=== PATIENT | male | born 1985 | race African-American/Black ===

== ENCOUNTER 2017-03-11 18:07 | Emergency (ER) | payer SELFPAY ==
[~2017-03-11] VITALS: Ht 182.9 cm; Wt 72.6 kg
[2017-03-11 18:20] VITALS: BP 125/88
--- NOTE | 2017-03-11 18:37 | PHYS DOC ---
Adult General Chief Complaint Chief Complaint: WRIST PAIN HPI HPI Patient is a 32 year old M who presents with left wrist pain. Patient states he was training his thoroughbred horses and fell off injuring his left wrist. Patient has obvious deformity to his left wrist. Patient sustained no other injuries. Patient reports no loss of consciousness or any head contusion. Patient has no other complaints. Review of Systems Review of Systems GEN: Denies fevers, chills, sweats HEENT: Denies blurred vision, sore throat CV: Denies chest pain RESP: Denies shortness of air, cough GI: Denies n/v/d NEURO: Denies confusion, dizziness MSK: Left wrist pain Current Medications Current Medications Current Medications Medications (Trade) Dose Ordered Sig/Greg Start Time Stop Time Status Last Admin Dose Admin Fentanyl Citrate (Fentanyl 2ml Vial) 100 mcg STK-MED ONCE 03/11/17 20:04 03/11/17 20:05 DC Allergies Allergies Allergies Coded Allergies Type Severity Reaction Last Updated Verified tramadol Allergy Intermediate 03/11/17 Yes Physical Exam Physical Exam GEN.: Confused, intoxicated HEENT: Head is normocephalic, atraumatic NECK: Supple. LUNGS: CTAB. HEART: RRR, S1, S2 present. Peripheral pulses intact ABDOMEN: Soft, nontender. Positive bowel sounds. EXTREMITIES: Without any cyanosis, left wrist obvious deformity to the distal radius, capillary refill the fingers on the left hand less than 2 seconds , +2 radial pulse left wrist, no tenderness palpation to the elbow or shoulder NEUROLOGIC: Cranial nerves II through XII are grossly intact to light focal neurological deficits PSYCHIATRIC: Hallucinating SKIN: No ulcerations Current Patient Data Vital Signs Vital Signs Date Time Temp Pulse Resp B/P (MAP) Pulse Ox O2 Delivery O2 Flow Rate FiO2 03/11/17 18:20 98.8 102 18 125/88 (100) 99 Room Air 98.8 EKG EKG [] Radiology/Procedures Radiology/Procedures X-ray of the left wrist shows a comminuted interarticular distal radius fracture X-ray of the left forearm shows the distal radius fracture[] Course & Med Decision Making Course & Med Decision Making Pertinent Labs and Imaging studies reviewed. (See chart for details) ED course: Patient was seen and examined emergency room x-rays of the left wrist and forearm were ordered 1923: Discussed CC/HP/PMH with Dr. Contreras's LILIA Randolph and recommends x-ray of the forearm and will contact Dr. Contreras 1950: Dr. Contreras's PA called back and recommends a sugar tong splint and no need to reduce the wrist because they are taken to surgery on and would like to follow up appointment on this Tuesday. 2015: Sugar tong splint applied to the left forearm post-splint reevaluation neurovascular intact MDM: After reviewing the chart, CC/HPI/PMH, physical exam, [radiological results], I do not believe the patient sustained a significant traumatic injury to the left wrist warranting further workup and/or admission at this time. Patient is stable for discharge and will have follow-up with orthopedics on Tuesday and surgery on . Patient is provided all contact and follow-up information with Dr. Contreras. Additional verbal discharge instructions were provided to the patient and that if symptoms get worse or any new symptoms arise that are worrisome to the patient he is to return to the emergency room immediately [] Dragon Disclaimer Dragon Disclaimer This electronic medical record was generated, in whole or in part, using a voice recognition dictation system. Departure Departure Impression: Primary Impression: Distal radius fracture, left Disposition: 01 HOME, SELF-CARE Condition: IMPROVED Referrals: SHAYY CONTRERAS MD Patient Instructions: Wrist Fracture, [id number] Additional Instructions: Please follow up with Dr. Contreras on Tuesday and call for an appointment and return if symptoms increase Scripts Oxycodone/Apap 7.5-325 (PERCOCET 7.5-325 MG TABLET) 1 Each Tablet 1 TAB PO QID Y for pa for 3 Days, #12 TAB Prov: BENSON BAZZI DO 03/11/17 BENSON BAZZI DO Mar 11, 2017 18:37
[2017-03-11] MEDS ORDERED: fentaNYL PF VIAL 100 MCG/2 ML VIAL IM ONE (20:00)
[2017-03-11] MEDS ORDERED: fentaNYL PF VIAL 100 MCG/2 ML VIAL ONE (20:04)
[2017-03-11] MEDS ORDERED: OXYC-327 PO (20:28)
--- NOTE | 2017-03-12 08:21 | RAD ---
Left wrist, 3 views, 03/11/2017: History: Fall, pain There is a comminuted fracture of the distal left radius. There is impaction at the fracture site with mild dorsal angulation and displacement of the major distal fracture fragments. The carpal bones are intact. No wrist dislocation is seen. There is moderate diffuse soft tissue swelling about the wrist. IMPRESSION: Acute comminuted fracture of the distal left radius. Left forearm, 2 views, 03/11/2017: No additional fracture or dislocation is evident.
== END 2017-03-11 20:42 | disposition home or self-care (01) ==
LOC: ER 18:07
DX: S52.592A Other fractures of lower end of left radius, initial encounter for closed fracture (principal); Z88.5 Allergy status to narcotic agent; W18.39XA Other fall on same level, initial encounter; Y93.89 Activity, other specified; Y92.89 Other specified places as the place of occurrence of the external cause; Y99.8 Other external cause status
CPT/HCPCS: 29125; 73090; 73110; 96372; 99284; J3010